=== PATIENT | male | born 1970 | race Caucasian/White ===

== ENCOUNTER 2019-12-24 00:45 | Emergency (ER) | payer OTHER, SELFPAY ==
[2019-12-24 00:52] VITALS: BP 161/96; PULSE 78; RESP 16; TEMP 36.6; O2SAT 100
--- NOTE | 2019-12-24 01:09 | ED.GENADULT ---
HPI - General Adult General Chief complaint: Urogenital-Male Stated complaint: erection for over four hours Time Seen by Provider: 12/24/19 00:59 Source: patient Mode of arrival: Ambulatory Limitations: no limitations History of Present Illness HPI narrative: Patient is a 49-year-old male. History of erectile dysfunction. Here in the emergency department greater than 4 hours after using a medication called TRI-MIX for erectile dysfunction. This is an injectable medication. This 1st time he is use this medication. He is here because the erection that he has had has not resolved. Has some discomfort however he states that it is very tolerable. He is here because erection has gone on for so long. Related Data Home Medications Medication Instructions Recorded Confirmed diltiazem HCl 240 mg PO QDAY #0 01/12/12 12/10/19 omeprazole 40 mg PO QDAY #0 07/20/16 12/10/19 pravastatin 80 mg PO QDAY #0 07/20/16 12/10/19 testosterone [AndroGel] 1.25 gm TD #0 07/20/16 12/10/19 dextroamphetamine-amphetamine 15 mg PO BID #0 07/27/17 12/10/19 [Adderall] Respironics Dreamstation CPAP #1 ea 11/14/18 12/10/19 Previous Rx's Medication Instructions Recorded docusate sodium [Colace] 100 mg PO BID #14 cap 07/31/17 zolpidem 10 mg tablet 10 mg PO BEDTIME PRN #30 tab 02/04/19 Ambien 10 mg tablet 10 mg PO BEDTIME PRN #30 tab NS 09/06/19 Allergies Allergy/AdvReac Type Severity Reaction Status Date / Time No Known Allergies Allergy Uncoded 12/10/19 09:19 Review of Systems Constitutional Constitutional: Denies fever(s) Cardiovascular Cardiovascular: Denies chest pain and Denies dyspnea Respiratory Respiratory: Denies dyspnea Genitourinary Comments: Priapism Integumentary/Breasts Skin/Breast: Denies lesions and Denies rash Patient History Medical History ADHD (attention deficit hyperactivity disorder) (Chronic) Excessive daytime sleepiness (Chronic) External hemorrhoid (Acute) Hypertension (Chronic) Obstructive sleep apnea of adult (Chronic) Primary insomnia (Chronic) Snoring (Chronic) Surgical History History of bilateral inguinal herniorrhaphies (Acute) History of laparoscopic cholecystectomy (Acute) History of repair of ACL (Acute) Family History Brother Insomnia Social History marital status: details: anusha Collins ([employer], [facility]) number of children: 3 household members: spouse lives independently: Yes housing: house occupational status: employed alcohol intake: current substance use type: does not use Exam Initial Vital Signs Initial Vital Signs: Vital Signs Temperature 97.8 F 12/24/19 00:52 Pulse Rate 78 12/24/19 00:52 Respiratory Rate 16 12/24/19 00:52 Blood Pressure 161/96 H 12/24/19 00:52 Pulse Oximetry 100 12/24/19 00:52 Const General: cooperative and healthy appearing Limitations: mental status not altered [facility] Head: normal to inspection and normocephalic Resp Effort & Inspection: normal respiratory effort External: circumcised Penis: no ecchymosis, not edematous, not erythematous and other (Erection) Meatus: meatus normal Scrotum: scrotum normal Testes: normal Skin Lesions: no lesions Rashes: no rashes Neuro General: patient alert and patient awake Cognition: normal cognition Extrem General: capillary refill normal Psych Appearance: grossly normal and well kempt Procedures Nerve Block Nerve Block 1: Time out performed: Yes Local Anesthetic: lidocaine 1% Amount of anesthesia used (mL): 4 Nerve Blocks: other (Penile) Procedure Successful: Yes Patient Tolerated Procedure: Well Complications: none Penile Procedure Time Out Performed: Yes Indication: priapism management Procedural Sedation: No Sedation/Analgesia: none Local Anesthesia Used: lidocaine 1% without epi Amount of anesthesia used (mL): 2 Priapism Management: aspiration (20 cc total) and phenylephrine injection (Total of 200mcg in 2x 100MCG aliquots) Patient Tolerated Procedure: Well Complications: none Course Orders Ordered: Discontinued Medications Sodium Chloride (Normal Saline 0.9%) 50 mls @ 1,000 mls/hr IV BOLUS ONE Stop: 12/24/19 01:49 Last Admin: 12/24/19 02:04 Dose: Not Given Documented by: LEONARD Lidocaine HCl (Xylocaine 1% (Pf)) 4 ml INJ NOW ONE Stop: 12/24/19 01:11 Last Admin: 12/24/19 01:38 Dose: 4 ml Documented by: LEONARD Lidocaine HCl (Xylocaine 1% (Pf)) 2 ml INJ NOW ONE Stop: 12/24/19 01:45 Last Admin: 12/24/19 02:03 Dose: 2 ml Documented by: LEONARD Sodium Chloride (Normal Saline 0.9%) 100 ml IV NOW ONE Stop: 12/24/19 02:05 Last Admin: 12/24/19 02:06 Dose: 100 ml Documented by: LEONARD Vital Signs Vital signs: Vital Signs - 8 hr 12/24/19 00:52 12/24/19 03:10 Temperature 97.8 F Pulse Rate 78 76 Respiratory Rate 16 20 Blood Pressure 161/96 H 152/94 H Pulse Oximetry 100 98 Medical Decision Making MDM Narrative Medical decision making narrative: Penile block provided with 4 cc of 1% lidocaine without epi. Another do cc total of lidocaine was used for local injection. A total of 200 mcg of phenylephrine used in 2x 100 mcg aliquots approximately 30 minutes apart. During the 1st procedure a total of 20 cc of blood was aspirated. The injections and aspirations were performed on the left side dorsum at the base of the penis. After the 1st injection of phenylephrine in the aspiration of blood patient had a good outcome with the penis becoming more flaccid. After waiting 30 minutes the priapism was much improved however patient stated that he did feel somewhat engorged so another 100 cc phenylephrine was injected. After this again penis became much more flaccid. He was observed for 30 minutes of for the 2nd injection. The prior visit almost completely resolved. Feel patient be safely discharged home without further interventions. He was instructed not to use the medication again until he talked these urologist. He was given strict return precautions and follow-up instructions. He expressed understanding and agreement. Discharge Plan Departure Patient Disposition: Home Clinical Impression: Priapism Discharge Date/Time: 12/24/19 03:10 Instructions: DI for Priapism Activity Restrictions/Additional Instructions: I would recommend that you do not use in the erectile dysfunction medications again into you talk with your urologist. The erection should not reoccur however if it does or if you have more pain or fevers or problems urinating please return to the emergency department. I do recommend that you contact your urologist tomorrow to discuss the events of this evening. You can continue the rest of your medications as directed Prescriptions: No Action diltiazem HCl 240 MG capsule,extended release 24hr 240 mg PO QDAY Qty: 0 RF: 0 omeprazole 40 MG capsule,delayed release(DR/EC) 40 mg PO QDAY Qty: 0 RF: 0 testosterone [AndroGel] 1.25 GM gel in packet 1.25 gm TD Qty: 0 RF: 0 pravastatin 40 MG tablet 80 mg PO QDAY Qty: 0 RF: 0 dextroamphetamine-amphetamine [Adderall] 15 MG tablet 15 mg PO BID Qty: 0 RF: 0 docusate sodium [Colace] 100 MG capsule 100 mg PO BID Qty: 14 RF: 1 zolpidem [Ambien] 10 mg tablet 10 mg PO BEDTIME PRN (Reason: insomnia) Qty: 30 RF: 2 zolpidem [Ambien] 10 mg tablet 10 mg PO BEDTIME PRN (Reason: insomnia) Qty: 30 RF: 0 (DME) Respironics Dreamstation CPAP Qty: 1 RF: 0 Referrals: Popeye Shields MD [Primary Care Provider] -
[2019-12-24] MEDS: LIDOCAINE 1% (PF) 4 ML INJ (01:38)
[2019-12-24] MEDS: LIDOCAINE 1% (PF) 2 ML INJ (02:03)
[2019-12-24] MEDS: SODIUM CHLORIDE 0.9% 100 ML IV (02:06)
--- NOTE | 2019-12-24 02:09 | PC.NURSE ---
Addendum entered by Leidy Waller R.N. 12/24/19 02:34: He was given by DR Guardado 100mcg of phenylephrine. Original Note: He was given one ml of phenylephrine ,concentration 10mg per ml,that was mixed in [address] ml [address] saline [address] Guardado.I could not scan the vial of phenylephrine.
--- NOTE | 2019-12-24 02:17 | PC.NURSE ---
He was here for an erection for approx. 4 hours after taking injection of tri-mix.After Dr rice injected his penis with phenylephrine his erection subsided.
[2019-12-24 03:10] VITALS: BP 152/94; PULSE 76; RESP 20; O2SAT 98
== END 2019-12-24 03:10 | disposition home or self-care (01) ==
PROVIDERS: Emergency Provider Emergency Medicine; Family Provider Family Medicine; PCP Family Medicine
DX: N48.33 Priapism, drug-induced (principal); T50.995A Adverse effect of other drugs, medicaments and biological substances, initial encounter
CPT/HCPCS: 54220; 64450; 99283; 99284

== ENCOUNTER 2020-01-08 04:29 | Emergency (ER) | payer OTHER, SELFPAY ==
[2020-01-08 04:37] VITALS: BP 135/90; PULSE 89; RESP 15; TEMP 37; O2SAT 96; BMI 27.7
--- NOTE | 2020-01-08 04:48 | ED_ITS ---
HPI - Male Genitourinary General Chief complaint: Urogenital-Male Stated complaint: erection lasting 8 hours Time Seen by Provider: 01/08/20 04:35 Source: patient and family History of Present Illness HPI Narrative: Patient here for priapism used trimix 8 hours ago. He was here December 23 for the same and had phenylephrine injection with aspiration. Duration: constant Location: penis Severity: severe Related Data Home Medications Medication Instructions Recorded Confirmed diltiazem HCl 240 mg PO QDAY #0 01/12/12 12/10/19 omeprazole 40 mg PO QDAY #0 07/20/16 12/10/19 pravastatin 80 mg PO QDAY #0 07/20/16 12/10/19 testosterone [AndroGel] 1.25 gm TD #0 07/20/16 12/10/19 dextroamphetamine-amphetamine 15 mg PO BID #0 07/27/17 12/10/19 [Adderall] Respironics Dreamstation CPAP #1 ea 11/14/18 12/10/19 Previous Rx's Medication Instructions Recorded docusate sodium [Colace] 100 mg PO BID #14 cap 07/31/17 zolpidem 10 mg tablet 10 mg PO BEDTIME PRN #30 tab 02/04/19 Ambien 10 mg tablet 10 mg PO BEDTIME PRN #30 tab NS 09/06/19 Allergies Allergy/AdvReac Type Severity Reaction Status Date / Time No Known Allergies Allergy Verified 01/08/20 07:05 Review of Systems Review of Systems Narrative: GENERAL: Denies chills, fatigue, malaise, fever, sweats. : Denies dysuria, frequency, incontinence, hematuria, complains priapism SKIN: Denies rash, skin lesions NEUROLOGIC: Denies numbness PSYCHIATRIC: No concerning psychosocial issues. 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 Well-nourished, well- developed patient, in no distress, not toxic HEAD: Atraumatic. Normocephalic. : No lesions no alterations no cyanosis or discoloration no genitalia. Pa tient is circumcised. Erection present. BACK: Nontender without deformity or crepitance. No flank tenderness. NEURO: AOx3. SKIN: No rash or erythema of visible areas Initial Vital Signs Initial Vital Signs: Vital Signs Temperature 98.6 F 01/08/20 04:37 Pulse Rate 89 01/08/20 04:37 Respiratory Rate 15 01/08/20 04:37 Blood Pressure 135/90 01/08/20 04:37 Pulse Oximetry 96 01/08/20 04:37 Course Course Course Narrative: Time 5:40 a.m.. I spoke with Dr. Hernandes, urology, he states he is unable to help because he is in urology oncology. Time 5:47 a.m. I spoke with patient's urology group dr miller [facility], at this time no aspiration but try to give injection of phenylephrine. Give injection dosing 500 mcg per 0.1 mL lateral surface mid penis. Time 6:27 a.m., we have been on phone with pharmacy to order proper dosing and computer system does not have the 10,000 mcg per mL, had to use [facility] pharmacy by phone to help Time 6:54 a.m. 500 micro g of phenylephrine injected into the left lateral mid penile shaft without difficulty. Clean skin with alcohol swab. Patient tolerated well. Aspirated before injection and had flashback. Time 7:[address] Harrison called back and instructed if not improved in 10 or 20 minutes and then sent patient to [facility] and he will see patient there. Time 7:08 a.m.. No improvement. I spoke with Dr. Harrison. Will be sending patient to [facility] emergency department and he will meet the patient there Time 7:14 a.m. I spoke with [facility], Dr. Thorpe, he will accept patient, he will contact Dr. Harrison on patient arrival Orders Ordered: Phenylephrine HCl (John-Synephrine) 500 mcg IM SEEINSTR JORGE A Stop: 01/08/20 23:59 Last Admin: 01/08/20 06:47 Dose: 500 mcg Documented by: LEONARD Discontinued Medications Hydromorphone HCl (Dilaudid) 1 mg IM NOW ONE Stop: 01/08/20 05:46 Last Admin: 01/08/20 06:07 Dose: 1 mg Documented by: LEONARD Ondansetron HCl (Zofran Odt) 4 mg SL NOW ONE Stop: 01/08/20 05:46 Last Admin: 01/08/20 06:07 Dose: 4 mg Documented by: LEONARD Reevaluation(s) Reevaluation #1: Patient and his have been very patient. Very understanding about multiple calls in attempts to get Urology to help. Re- evaluation of skin no cyanosis no discoloration. At this time they understand will need to go to [facility]. They do not want ambulance service. They desire to drive themselves. Time: 07:04 Reevaluation #2: I spoke with patient and . They do not want EMS transfer. They desire to drive. Pain has improved. Re-examination and priapism has improved, less pressure. Time: 07:19 Consultations Consultation #1: [facility] gurrola and he states he is not able to help. he has not done decompression for priapism in 25 years Time: 04:50 Consultation #2: i sw dr simpson, urology, with [facility], she states she will not help as we have urology here, dr gurrola whom i've already spoken with Time: 05:16 Consultation #3: s/w [facility], urology, dr enriquez, she s/w her attending and wanted to try to lookup Up to Date website for step by step procedure Time: 05:31 Vital Signs Vital signs: Vital Signs - 8 hr 01/08/20 04:37 01/08/20 06:26 Temperature 98.6 F Pulse Rate 89 76 Respiratory Rate 15 20 Blood Pressure 135/90 137/76 Pulse Oximetry 96 98 MDM - Male Genitourinary Differential Diagnosis Differential diagnosis: Likely priapism Medical Records Attestation: I reviewed the patient's medical records. MDM Narrative Medical decision making narrative: Paged Urology at 4:51 a.m. Discharge Plan Departure Patient Disposition: [facility] Clinical Impression: Priapism Activity Restrictions/Additional Instructions: Go directly to [facility]. Here Dr. Nelson is expecting you from emergency department, they will call Dr. Harrison with Urology to meet you there. Prescriptions: No Action diltiazem HCl 240 MG capsule,extended release 24hr 240 mg PO QDAY Qty: 0 RF: 0 omeprazole 40 MG capsule,delayed release(DR/EC) 40 mg PO QDAY Qty: 0 RF: 0 testosterone [AndroGel] 1.25 GM gel in packet 1.25 gm TD Qty: 0 RF: 0 pravastatin 40 MG tablet 80 mg PO QDAY Qty: 0 RF: 0 dextroamphetamine-amphetamine [Adderall] 15 MG tablet 15 mg PO BID Qty: 0 RF: 0 docusate sodium [Colace] 100 MG capsule 100 mg PO BID Qty: 14 RF: 1 zolpidem [Ambien] 10 mg tablet 10 mg PO BEDTIME PRN (Reason: insomnia) Qty: 30 RF: 2 zolpidem [Ambien] 10 mg tablet 10 mg PO BEDTIME PRN (Reason: insomnia) Qty: 30 RF: 0 (DME) Respironics Dreamstation CPAP Qty: 1 RF: 0 Referrals: Popeye Shields MD [Primary Care Provider] -
[2020-01-08] MEDS: HYDROMORPHONE 1 MG INJ IM ×2 (06:07→07:11)
[2020-01-08] MEDS: ONDANSETRON 4 MG ODT SL (06:07)
[2020-01-08 06:26] VITALS: BP 137/76; PULSE 76; RESP 20; O2SAT 98
[2020-01-08] MEDS: PHENYLEPHRINE 10,000 MCG/ML VIAL 500 MCG IM (06:47)
[2020-01-08 07:27] VITALS: BP 129/67; PULSE 62; RESP 18; O2SAT 95
== END 2020-01-08 07:30 | disposition short-term general hospital (02) ==
PROVIDERS: Emergency Provider Emergency Medicine; Family Provider Family Medicine; PCP Family Medicine
DX: N48.30 Priapism, unspecified (principal)
CPT/HCPCS: 96372; 99283; J1170

== ENCOUNTER → 2020-10-06 16:50 | Outpatient (CLI) | payer OTHER, SELFPAY ==
[2020-10-06] MEDS: COVID-19 VACC #1, MRNA(MOD) 100 MCG/0.5 ML VIAL IM (17:01)
== END ==
PROVIDERS: PCP Family Medicine; Referring Provider Internal Medicine; Visit Provider Internal Medicine
DX: Z23 Encounter for immunization (principal)
CPT/HCPCS: 0011A; 91301

== ENCOUNTER → 2020-10-11 08:15 | Outpatient (CLI) | payer OTHER, SELFPAY ==
[2020-10-11 08:49] LABS: Add Manual Diff / Slide Review NO; Basophils Absolute Auto 100 /uL (0-100); Basophils Percent Auto 2.3 % (0-2); Eosinophils Absolute Auto 200 /uL (0-450); Hematocrit 45.6 % (41-53); Hemoglobin 15.3 g/dL (13.5-17.5); Lymphocytes Absolute Auto 1600 /uL (1100-4500); Lymphocytes Percent Auto 34.8 % (25-40); Mean Corpuscular HGB Conc 33.6 % (30-36); Mean Corpuscular Hemoglobin 29.7 PG (26-34); Mean Corpuscular Volume 88.3 fL (80-100); Monocytes Absolute Auto 500 /uL (0-900); Monocytes Percent Auto 11.9 % (3-14); Neutrophils Absolute Auto 2100 /uL (1500-7000); Platelet Count 324 X10^3/uL (150-400); Red Blood Cell Count 5.16 X10^6/uL (4.5-5.9); Red Cell Distribution Width 13.6 % (11.6-14.8); White Blood Cell Count 4.6 X10^3/uL (4.5-11.0)
[2020-10-11 09:10] LABS: Alanine Aminotransferase 29 IU/L (<50); Albumin 4.5 g/dL (3.5-5.0); Albumin Globulin Ratio 1.5 (1.0-2.8); Alkaline Phosphatase 64 U/L (38-126); Aspartate Aminotransferase 27 IU/L (17-59); BUN Creatinine Ratio 20.4 (6-22); Bilirubin Total 0.5 mg/dL (0.2-1.3); Blood Urea Nitrogen 23 mg/dL (9-20); Calcium 9.6 mg/dL (8.4-10.2); Carbon Dioxide 31 mmol/L (22-32); Chloride 102 mmol/L (98-107); Cholesterol 209 mg/dL (140-199); Estimated Glomerular Filt Rate > 60.0 mL/min (>60); Globulin 3.1 g/dL (1.7-4.1); Glucose 112 mg/dL (70-100); HDL Cholesterol 53 mg/dL (40-60); HEMOLYSIS < 15 (0-50); LDL Cholesterol Calculated 139 mg/dL (<100); Potassium 4.1 mmol/L (3.4-5.1); Sodium 140 mmol/L (137-145); Total Protein 7.6 g/dL (6.3-8.2); Triglycerides 85 mg/dL (35-150)
[2020-10-11 09:33] LABS: Thyroid Stimulating Hormone 2.94 uIU/mL (0.47-4.68)
[2020-10-11 09:35] LABS: Prostate Specific Antigen 1.76 ng/mL (0.10-4.00)
[2020-10-11 09:38] LABS: Testosterone 776 ng/dL (71.8-623)
== END ==
PROVIDERS: PCP Family Medicine; Referring Provider Family Medicine; Visit Provider Family Medicine
DX: Z13.0 Encounter for screening for diseases of the blood and blood-forming organs and certain disorders involving the immune mechanism (principal); I10 Essential (primary) hypertension; Z12.5 Encounter for screening for malignant neoplasm of prostate; E29.1 Testicular hypofunction; Z13.29 Encounter for screening for other suspected endocrine disorder
CPT/HCPCS: 36415; 80053; 80061; 84153; 84403; 84443; 85025

== ENCOUNTER → 2020-11-03 10:19 | Outpatient (CLI) | payer OTHER, SELFPAY ==
[2020-11-03] MEDS: COVID-19 VACC #2, MRNA(MOD) 100 MCG/0.5 ML VIAL IM (10:28)
== END ==
PROVIDERS: PCP Family Medicine; Visit Provider Internal Medicine
DX: Z23 Encounter for immunization (principal)
CPT/HCPCS: 0012A; 91301

== ENCOUNTER 2022-07-05 12:30 | Outpatient (RCR) | payer OTHER, SELFPAY | END 2022-07-05 14:30 | LOC: CAR 12:30 | PROVIDERS: PCP Family Medicine; Referring Provider Thoracic Surgery (Cardiothoracic Vascular Surgery); Visit Provider Thoracic Surgery (Cardiothoracic Vascular Surgery) | DX: Z98.890 Other specified postprocedural states (principal); I71.010 Dissection of ascending aorta; I71.20 Thoracic aortic aneurysm, without rupture, unspecified | CPT/HCPCS: 93798 ==

== ENCOUNTER → 2022-09-14 15:52 | Outpatient (ROUT) | payer OTHER, SELFPAY ==
[2022-09-14 16:33] LABS: Influenza A - CEPHEID Flu A NEGATIVE (NEGATIVE); Influenza B - CEPHEID Flu B NEGATIVE (NEGATIVE); Respiratory Syncytial Virus Negative (Negative)
[2022-09-14 17:02] LABS: COVID-19 CEPHEID 4-PLEX PCR Negative (Negative)
== END ==
PROVIDERS: PCP Family Medicine; Visit Provider Family Medicine
DX: R05.9 Cough, unspecified (principal); R53.83 Other fatigue
CPT/HCPCS: 0241U

== ENCOUNTER → 2023-04-11 10:37 | Outpatient (CLI) | payer OTHER, SELFPAY ==
[2023-04-18 10:33] LABS: Percent Free Testosterone 2.93 % (1.50-4.20); Testosterone Free 7.17 ng/dL (5.00-21.00); Testosterone Total 244.8 ng/dL (264.0-916.0)
== END ==
PROVIDERS: PCP Family Medicine; Referring Provider Family Medicine; Visit Provider Family Medicine
DX: E29.1 Testicular hypofunction (principal)
CPT/HCPCS: 36415; 84402; 84403

== ENCOUNTER 2023-08-29 17:37 | Observation (INO) | payer OTHER, SELFPAY ==
[2023-08-29] VITALS (14 sets, daily range): BP systolic 138–157; BP diastolic 68–88; PULSE 70–83; RESP 11–23; TEMP 36.8–37.2; O2SAT 94–98; BMI 32.3
--- NOTE | 2023-08-29 17:58 | DI.CT.S_ITS ---
PROCEDURE: CT HEAD/BRAIN WO CON INDICATIONS: stroke symptoms TECHNIQUE: Noncontrast 4.5 mm thick angled axial sections acquired from the foramen magnum to the vertex, with coronal and sagittal reformats. For radiation dose reduction, the following was used: automated exposure control, adjustment of mA and/or kV according to patient size. COMPARISON: None. FINDINGS: Image quality: Diagnostic. CSF spaces: Basal cisterns are patent. No extra-axial fluid collections. Ventricles are normal in size and shape. Brain: No midline shift. No intracranial masses or hemorrhage. Padilla-white matter interface is normal. Skull and face: Calvarium and visualized facial bones are intact, without suspicious lesions. Sinuses: Air-fluid level in the left maxillary sinus. IMPRESSION: No acute intracranial pathology. Left maxillary sinusitis. Dictated by: Sajan Mishra M.D. on 08/29/2023 at 18:47 Approved by: Sajan Mishra M.D. on 08/29/2023 at 18:49
--- NOTE | 2023-08-29 17:58 | DI.RAD.S_ITS ---
PROCEDURE: XR CHEST 1V INDICATIONS: Possible stroke TECHNIQUE: One view of the chest was acquired. COMPARISON: None. FINDINGS: Surgical changes and devices: Prior sternotomy. Lungs and pleura: Lungs are clear. No pleural effusions or pneumothorax. Mediastinum: Mediastinal contours appear normal. Heart size is normal. Bones and chest wall: No suspicious bony lesions. Overlying soft tissues appear unremarkable. IMPRESSION: No acute cardiopulmonary abnormality is seen. Dictated by: Sajan Mishra M.D. on 08/29/2023 at 18:46 Approved by: Sajan Mishra M.D. on 08/29/2023 at 18:46
--- NOTE | 2023-08-29 18:22 | PC.NURSE ---
IV placed by EMT student Veena
[2023-08-29 18:36] LABS: Add Manual Diff / Slide Review NO; Basophils Absolute Auto 100 /uL (0-100); Basophils Percent Auto 1.2 % (0-2); Eosinophils Absolute Auto 100 /uL (0-450); Eosinophils Percent Auto 1.4 % (2-4); Hematocrit 44.3 % (41-53); Hemoglobin 14.9 g/dL (13.5-17.5); Lymphocytes Absolute Auto 1600 /uL (1100-4500); Mean Corpuscular HGB Conc 33.6 % (30-36); Mean Corpuscular Hemoglobin 29.6 PG (26-34); Mean Corpuscular Volume 88.1 fL (80-100); Monocytes Absolute Auto 700 /uL (0-900); Monocytes Percent Auto 9.3 % (3-14); Neutrophils Absolute Auto 4600 /uL (1500-7000); Neutrophils Percent Auto 65.1 % (50-75); Platelet Count 331 X10^3/uL (150-400); Red Blood Cell Count 5.03 X10^6/uL (4.5-5.9); Red Cell Distribution Width 13.4 % (11.6-14.8); White Blood Cell Count 7.1 X10^3/uL (4.5-11.0)
[2023-08-29 18:44] LABS: INR 0.9 (0.9-1.3); Prothrombin Time 10.8 SECONDS (9.4-12.5)
[2023-08-29 18:47] LABS: PTT Partial Thromboplastin Tim 38 SECONDS (25.1-36.5)
[2023-08-29 18:50] LABS: Alanine Aminotransferase 54 IU/L (<50); Albumin 4.2 g/dL (3.5-5.0); Albumin Globulin Ratio 1.3 (1.0-2.8); Alkaline Phosphatase 69 U/L (38-126); Aspartate Aminotransferase 38 IU/L (17-59); BUN Creatinine Ratio 14.8 (6-22); Bilirubin Total 0.6 mg/dL (0.2-1.3); Blood Urea Nitrogen 20 mg/dL (9-20); Calcium 9.2 mg/dL (8.4-10.2); Carbon Dioxide 30 mmol/L (22-32); Chloride 106 mmol/L (98-107); Creatine Kinase 371 U/L (55-170); Estimated Glomerular Filt Rate > 60 mL/min (>60); Globulin 3.2 g/dL (1.7-4.1); Glucose 109 mg/dL (70-100); HEMOLYSIS < 15 (0-50); Magnesium 1.8 mg/dL (1.6-2.3); Potassium 3.9 mmol/L (3.4-5.1); Sodium 138 mmol/L (137-145); Total Protein 7.4 g/dL (6.3-8.2)
[2023-08-29 19:01] LABS: Troponin I 0.013 ng/mL (0.01-0.034)
--- NOTE | 2023-08-29 19:28 | ED_ITS ---
HPI - Neuro Symptoms/Deficit General Chief Complaint: Neuro Symptoms/Deficit Stated Complaint: thinks possible stroke Time Seen by Provider: 08/29/23 18:03 Source: patient Mode of arrival: Ambulatory History of Present Illness HPI Narrative: Patient is a 53-year-old male. Has a history of a aortic aneurysm status post repair. Not on blood thinners. Earlier today had a less than 10 minute episode where he states he was walking outside in order to go talk to somebody when he had the inability to speak. He states he realized that he wanted to speak and knew what he wanted to say but was unable to form the words. He was also having tingling in his left arm during that time. All of his symptoms have since resolved. During that episode and currently is not having headache vision changes shortness of breath chest pain abdominal pain nausea vomiting. He did not notice any balance issues at the time. He has never had symptoms like this in the past. He was not having any palpitations. Did not have palpitations at the time of the event. 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 On Anticoagulants: No Related Data Home Medications Medication Instructions Recorded Confirmed testosterone 1.62 % (20.25 mg/1.25 1.25 gm TD ##0 07/20/16 05/31/22 gram) transdermal gel packet (AndroGel) dextroamphetamine-amphetamine 15 15 mg PO BID ##0 07/27/17 08/30/23 mg tablet (Adderall) Respironics Dreamstation CPAP #1 ea 11/14/18 08/29/23 amlodipine 10 mg tablet 10 mg PO DAILY 05/31/22 08/29/23 aspirin 81 mg tablet,delayed 81 mg PO DAILY 05/31/22 08/29/23 release (Adult Aspirin Regimen) atorvastatin 40 mg tablet 40 mg PO DAILY 05/31/22 08/29/23 carvedilol 12.5 mg tablet 6.25 mg PO DAILY 05/31/22 08/30/23 losartan 25 mg tablet 25 mg PO BID 05/31/22 08/30/23 Previous Rx's Medication Instructions Recorded eszopiclone 2 mg tablet 2 mg PO BEDTIME PRN Primary 05/31/22 insomnia #30 tabs Allergies Allergy/AdvReac Type Severity Reaction Status Date / Time No Known Allergies Allergy Verified 08/29/23 17:54 Review of Systems Review of Systems ROS Unobtainable: All systems reviewed & are unremarkable except as noted in HPI and below Constitutional Constitutional: Reports system reviewed and no additional complaints, except as documented Cardiovascular Cardiovascular: Reports system reviewed and no additional complaints, except as documented Respiratory Respiratory: Reports system reviewed and no additional complaints, except as documented Gastrointestinal Gastrointestinal: Reports system reviewed and no additional complaints, except as documented Integumentary/Breasts Skin/Breast: Reports system reviewed and no additional complaints, except as documented Neurologic Neurologic: Reports system reviewed and no additional complaints, except as documented Hematologic/Lymphatic On Anticoagulants: No Patient History Medical History History 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 (2021) 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 External hemorrhoid ADHD (attention deficit hyperactivity disorder) Hypertension Excessive daytime sleepiness Obstructive sleep apnea of adult Snoring Primary insomnia Surgical History History of bilateral inguinal herniorrhaphies History of repair of ACL History of laparoscopic cholecystectomy Family History Brother Insomnia Social History marital status: details: 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, [employer]) number of children: 3 household members: spouse lives independently: Yes housing: house occupational status: employed Smoking Status: Former smoker alcohol intake: former substance use type: does not use Smoking Status: Former smoker alcohol intake frequency: a few times a week Substance Use Type: does not use Exam Initial Vital Signs Initial Vital Signs: Vital Signs Temperature 99 F 08/29/23 17:47 Pulse Rate 81 08/29/23 17:47 Respiratory Rate 18 08/29/23 17:47 Blood Pressure 156/85 H 08/29/23 17:47 Pulse Oximetry 98 08/29/23 17:47 Oxygen Delivery Method Room Air 08/29/23 17:47 Const General: cooperative, comfortable, well groomed and No ill appearing HENMT Head: normal to inspection and normocephalic Resp Effort & Inspection: normal respiratory effort Auscultation: clear to auscultation bilaterally Cardio Rate: regular rate Rhythm: regular rhythm GI Inspection: normal to inspection and non-distended Palpation: soft and No tender Skin General: no rashes or lesions noted Neuro General: patient alert, patient awake, patient oriented x3 and moves all extremities Cranial Nerves: CN's II-XI intact bilaterally Cognition: normal cognition Speech: speech normal Gait: normal gait Motor: muscle tone normal throughout Sensory Exam: no sensory deficits noted Extrem General: normal to inspection and capillary refill normal Scores ABCD2 Age >= 60 years: no Initial BP. Either SBP >= 140 or DBP >= 90.: no Clinical features of the TIA: speech disturbance without weakness Duration of symptoms: < 10 minutes History of diabetes: no ABCD2 Score: 1 GCS Hola coma scale eye opening: Spontaneous Hola coma scale verbal response: Orientated Theodore coma scale motor response: Obey commands Theodore coma scale total score: 15 Course Orders Ordered: ED Orders 08/29/23 20:09 CT angio head and neck Stat 08/29/23 21:52 Consult to Physician Stat MR stroke Stat Ondansetron HCl (Ondansetron 4 Mg/2 Ml Inj) 4 mg IV NOW PRN PRN Reason: Nausea And Vomiting Ondansetron HCl (Ondansetron 4 Mg Odt) 4 mg SL NOW PRN PRN Reason: Nausea And Vomiting Vital Signs Vital signs: Vital Signs - 8 hr 08/29/23 21:00 08/29/23 21:00 08/29/23 21:30 Pulse Rate 74 Respiratory Rate 23 Blood Pressure 138/75 144/75 H Pulse Oximetry 94 08/29/23 21:30 Pulse Rate 73 Respiratory Rate 14 Blood Pressure Pulse Oximetry 96 MDM - Neuro Symptoms/Deficit Lab Data Attestation: I reviewed the patient's lab results. 08/29/23 18:12 08/29/23 18:12 Labs: Lab Results 08/29/23 08/29/23 Range/Units 18:12 19:28 WBC 7.1 (4.5-11.0) X10^3/uL RBC 5.03 (4.5-5.9) X10^6/uL Hgb 14.9 (13.5-17.5) g/dL Hct 44.3 (41-53) % MCV 88.1 (80-100) fL MCH 29.6 (26-34) PG MCHC 33.6 (30-36) % RDW 13.4 (11.6-14.8) % Plt Count 331 (150-400) X10^3/uL Neut % (Auto) 65.1 (50-75) % Lymph % (Auto) 23.0 L (25-40) % [place] % (Auto) 9.3 (3-14) % Eos % (Auto) 1.4 L (2-4) % Baso % (Auto) 1.2 (0-2) % Neut # (Auto) 4600 (2647-1489) /uL Lymph # (Auto) 1600 (2012-1751) /uL [place] # (Auto) 700 (0-900) /uL Eos # (Auto) 100 (0-450) /uL Baso # (Auto) 100 (0-100) /uL PT 10.8 (9.4-12.5) SECONDS INR 0.9 (0.9-1.3) APTT 38 H (25.1-36.5) SECONDS Sodium 138 (137-145) mmol/L Potassium 3.9 (3.4-5.1) mmol/L Chloride 106 (98-107) mmol/L Carbon Dioxide 30 (22-32) mmol/L BUN 20 (9-20) mg/dL Creatinine 1.35 H (0.66-1.25) mg/dL Estimated GFR > 60 (>60) mL/min BUN/Creatinine Ratio 14.8 (6-22) Glucose 109 H (70-100) mg/dL Calcium 9.2 (8.4-10.2) mg/dL Magnesium 1.8 (1.6-2.3) mg/dL Total Bilirubin 0.6 (0.2-1.3) mg/dL AST 38 (17-59) IU/L ALT 54 H (<50) IU/L Alkaline Phosphatase 69 (38-126) U/L Total Creatine Kinase 371 H (55-170) U/L Troponin I 0.013 (0.01-0.034) ng/mL Total Protein 7.4 (6.3-8.2) g/dL Albumin 4.2 (3.5-5.0) g/dL Globulin 3.2 (1.7-4.1) g/dL Albumin/Globulin Ratio 1.3 (1.0-2.8) U Opiates 300ng/mL cut Negative (Negative) Ur Oxycodone Screen Negative (Negative) Urine Methadone Screen Negative (Negative) Ur Barbiturates Screen Negative (Negative) U Tricyclic Antidepress Negative (Negative) Ur Phencyclidine Scrn Negative (Negative) Ur Amphetamines Screen Positive H (Negative) U Methamphetamines Scrn Negative (Negative) Ur MDMA Scrn (Ecstasy) Negative (Negative) U Benzodiazepines Scrn Negative (Negative) Urine Cocaine Screen Negative (Negative) U Marijuana (THC) Screen Negative (Negative) Urine pH TNP Urine Specific [place] TNP Ur Creatinine TNP Urine Dip Bedside Urine Glucose Negative Bedside Urine Bilirubin - Negative Bedside Urine Ketone - Negative Urine Specific [place] 1.030 Bedside Urine Occult Blood - Negative Bedside Urine pH 5.5 Bedside Urine Protein - Negative Bedside Urine Urobilinogen - Negative Bedside Urine Nitrite - Negative Bedside Urine Leukocytes - Negative Esterase Imaging Data Chest x-ray: Radiologist's Impression: PROCEDURE: XR CHEST 1V INDICATIONS: Possible stroke TECHNIQUE: One view of the chest was acquired. COMPARISON: None. FINDINGS: Surgical changes and devices: Prior sternotomy. Lungs and pleura: Lungs are clear. No pleural effusions or pneumothorax. Mediastinum: Mediastinal contours appear normal. Heart size is normal. Bones and chest wall: No suspicious bony lesions. Overlying soft tissues appear unremarkable. IMPRESSION: No acute cardiopulmonary abnormality is seen. CT scan - head: Radiologist's Impression: PROCEDURE: CT HEAD/BRAIN WO CON INDICATIONS: stroke symptoms TECHNIQUE: Noncontrast 4.5 mm thick angled axial sections acquired from the foramen magnum to the vertex, with coronal and sagittal reformats. For radiation dose reduction, the following was used: automated exposure control, adjustment of mA and/or kV according to patient size. COMPARISON: None. FINDINGS: Image quality: Diagnostic. CSF spaces: Basal cisterns are patent. No extra-axial fluid collections. Ventricles are normal in size and shape. Brain: No midline shift. No intracranial masses or hemorrhage. Padilla-white matter interface is normal. Skull and face: Calvarium and visualized facial bones are intact, without suspicious lesions. Sinuses: Air-fluid level in the left maxillary sinus. IMPRESSION: No acute intracranial pathology. Left maxillary sinusitis. CTA - brain/neck: Radiologist's Impression: PROCEDURE: CT ANGIO HEAD AND NECK INDICATIONS: tia hx of tad TECHNIQUE: After the administration of intravenous contrast, 1 mm thick sections acquired from the aortic arch through the [place] of [place]. 3-dimensional bohitqh-hiuavsfdt-oflxyzbteg (MIP) and/or volume rendering reformats were acquired of the central intracranial vasculature and neck separately. For radiation dose reduction, the following was used: automated exposure control, adjustment of mA and/or kV according to patient size. COMPARISON: None. FINDINGS: Image quality: Diagnostic. BRAIN: Later to separately dictated CT of the head. HEAD CT ANGIOGRAPHY: Anterior circulation: Intracranial internal carotid arteries are normal in size and flow with atherosclerotic vascular calcifications. The flow within the paired anterior cerebral arteries is normal and symmetric. The flow within the middle cerebral arteries is normal and symmetric. The anterior communicating artery is seen. No aneurysms are seen. Posterior circulation: Visualized portions of the vertebral arteries demonstrate normal caliber, and join to form a normal appearing basilar artery. Flow within the posterior cerebral arteries is normal and symmetric. No aneurysms are seen. NECK CT ANGIOGRAPHY: Carotid system: The great vessels demonstrate a conventional anatomy as they arise from the aortic arch. The origins of the common carotid arteries appear patent. The common carotid arteries demonstrate normal caliber and courses. The bifurcation regions are both widely patent. The internal carotid arteries demonstrate normal calibers and courses. Posterior circulation: The origins of the vertebral arteries both appear widely patent. The more superior extracranial portions of both vertebral arteries also demonstrate normal courses and calibers. They join to form a normal appearing basilar artery. Soft tissues: Visualized neck soft tissues demonstrate no suspicious abnormalities. Bones: No suspicious bony lesions. Visualized cervical spine appears normally aligned. Near complete opacification of left maxillary sinus. Degenerative changes of the spine. IMPRESSION: No significant intracranial arterial abnormality is seen. No significant abnormality is seen within the arteries of the neck. Any quantitative measurements of stenosis were performed using NASCET criteria. MDM Narrative Medical decision making narrative: Currently is asymptomatic. Sinus rhythm on the EKG. Has a history of a aortic aneurysm/dissection status post repair. No history of AFib. Has had some palpitations and lightheadedness associated with this recently but not today. Had symptoms today that were concerning for TIA. Head CT and CTA of the head and neck show no acute pathology. Plan will be to admit to the hospital for further evaluation. Discussed the case with Dr. Soriano on-call for the patient's primary doctor who will admit. Discussed the need for admission with the patient. He expressed understanding and agreement. Discharge Plan Departure Patient Disposition: Admitted as Observation Clinical Impression: Brain TIA Admit Date/Time: 08/29/23 21:54 Admit Provider: Rocael Soriano
--- NOTE | 2023-08-29 20:09 | DI.CT.S_ITS ---
PROCEDURE: CT ANGIO HEAD AND NECK INDICATIONS: tia hx of tad TECHNIQUE: After the administration of intravenous contrast, 1 mm thick sections acquired from the aortic arch through the [place] of [place]. 3-dimensional yogvnck-aotcxlseq-xthkwwcnuc (MIP) and/or volume rendering reformats were acquired of the central intracranial vasculature and neck separately. For radiation dose reduction, the following was used: automated exposure control, adjustment of mA and/or kV according to patient size. COMPARISON: None. FINDINGS: Image quality: Diagnostic. BRAIN: Later to separately dictated CT of the head. HEAD CT ANGIOGRAPHY: Anterior circulation: Intracranial internal carotid arteries are normal in size and flow with atherosclerotic vascular calcifications. The flow within the paired anterior cerebral arteries is normal and symmetric. The flow within the middle cerebral arteries is normal and symmetric. The anterior communicating artery is seen. No aneurysms are seen. Posterior circulation: Visualized portions of the vertebral arteries demonstrate normal caliber, and join to form a normal appearing basilar artery. Flow within the posterior cerebral arteries is normal and symmetric. No aneurysms are seen. NECK CT ANGIOGRAPHY: Carotid system: The great vessels demonstrate a conventional anatomy as they arise from the aortic arch. The origins of the common carotid arteries appear patent. The common carotid arteries demonstrate normal caliber and courses. The bifurcation regions are both widely patent. The internal carotid arteries demonstrate normal calibers and courses. Posterior circulation: The origins of the vertebral arteries both appear widely patent. The more superior extracranial portions of both vertebral arteries also demonstrate normal courses and calibers. They join to form a normal appearing basilar artery. Soft tissues: Visualized neck soft tissues demonstrate no suspicious abnormalities. Bones: No suspicious bony lesions. Visualized cervical spine appears normally aligned. Near complete opacification of left maxillary sinus. Degenerative changes of the spine. IMPRESSION: No significant intracranial arterial abnormality is seen. No significant abnormality is seen within the arteries of the neck. Any quantitative measurements of stenosis were performed using NASCET criteria. Dictated by: Shadi Ingram M.D. on 08/29/2023 at 21:19 Approved by: Shadi Ingram M.D. on 08/29/2023 at 21:24
[2023-08-29 21:25] LABS: UR Morphine/Opiate cutoff 300 Negative (Negative); Urine Amphetamines Positive (Negative); Urine Barbiturates Negative (Negative); Urine Benzodiazepines Negative (Negative); Urine Cocaine Negative (Negative); Urine MDMA Negative (Negative); Urine Methadone Negative (Negative); Urine Methamphetamines Negative (Negative); Urine Oxycodone Negative (Negative); Urine Phencyclidine Negative (Negative); Urine Tetrahydrocannabinol Negative (Negative); Urine Tricyclic Antidepressant Negative (Negative)
--- NOTE | 2023-08-29 21:52 | DI.MRI.S_ITS ---
PROCEDURE: MR HEAD/BRAIN WO CON INDICATIONS: TIA TECHNIQUE: Noncontrast axial T1 spin echo, axial T2 fast spin echo, sagittal and axial FLAIR, coronal T2 fast spin echo, axial gradient echo, axial diffusion and ADC through the brain. COMPARISON: [facility], CT, CT HEAD/BRAIN WO CON, 08/29/2023, 18:25. FINDINGS: Image quality: Excellent. CSF Spaces: Basal cisterns are patent. No extra-axial fluid collections. Ventricles are normal in size and shape. Brain: No intracranial masses or hemorrhage. Padilla/white matter interface is normal. Brainstem appears normal. Diffusion-weighted images demonstrate no acute infarct. No chronic ischemic insults. Normal intravascular flow voids are present. Skull and face: Calvarium has normal marrow signal. Orbits appear normal. Sinuses: Marked thickening of the mucosa of the left maxillary sinus with a moderate air-fluid level present. Mild patchy anterior left ethmoid opacification and mucosal thickening. IMPRESSION: 1 period normal appearance of brain. No acute intracranial process. 2. Acute on chronic sinusitis. Dictated by: Chris Murray M.D. on 08/30/2023 at 9:03 Approved by: Chris Murray M.D. on 08/30/2023 at 9:04
[2023-08-30 04:46] VITALS: BP 129/72; PULSE 66; RESP 16; TEMP 36.9; O2SAT 96
--- NOTE | 2023-08-30 05:58 | PC.ADMIT ---
[email or web address] [facility] Admission Note: Patient admitted to AC unit from ED at 23:11, transferred via wheelchair. Alert and oriented x 4, cooperative. Ambulates independently in room. Denies pain or discomfort. Oriented to room and call light, bed in low and locked position. Call light is within reach. Requested CPAP, as he wears CPAP at home. Received order from Dr. Soriano, RT notified. The patient,Sudeep Crawford,53 y/o, was given written information regarding hospital policies, unit procedures and contact persons. Patient's smoking status: Former smoker. Vital Signs - 8 hr 08/29/23 22:00 08/29/23 22:00 08/29/23 22:30 Temperature Pulse Rate 73 70 Respiratory Rate 14 13 Blood Pressure 147/74 H Pulse Oximetry 96 96 Oxygen Flow Rate 08/29/23 22:30 08/29/23 23:11 08/30/23 04:46 Temperature 98.2 F 98.4 F Pulse Rate 74 66 Respiratory Rate 16 16 Blood Pressure 155/88 H 157/83 H 129/72 Pulse Oximetry 97 96 Oxygen Flow Rate 0 0
[2023-08-30 08:00] VITALS: BP 148/80; PULSE 67; RESP 16; TEMP 36.3; O2SAT 98
--- NOTE | 2023-08-30 09:15 | P.HP_ITS ---
History of Present Illness History of Present Illness Date Patient Seen: 08/30/23 Time Patient Seen: 08:30 Chief complaint: thinks possible stroke Narrative: CC: aphasia Pt reports that last evening he was having a regular night at home, he was trying some self administered L facial sinus massage trying to clear it open as he has a chronic problem with his sinuses- he was interrupted by his family member arriving in a truck which he ran out and hopped in but then found that he wasn't able to construct clear words without slurring dramatically. States he felt like he was thinking clearly but just couldn't get the words out. Also noted concurrently a patch of skin on his L forearm went numb. They contacted a family member who is a nurse who advised them to present to ED which they did. The slurred words persisted for about 15 minutes before dissipating - the numb arm resolved after about an hour. He reports this morning he feels quite back to baseline. CT and CTA head were done in ED with findings only remarkable for a L maxillary sinusitis. 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 of 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: 3 household members: spouse lives independently: Yes housing: house occupational status: employed Smoking Status: Former smoker alcohol intake: former substance use type: does not use Meds Home Medications and Allergies Home Medications Medication Instructions Recorded Confirmed Type testosterone 1.62 % (20.25 mg/1.25 1.25 gm TD ##0 07/20/16 05/31/22 History gram) transdermal gel packet (AndroGel) dextroamphetamine-amphetamine 15 15 mg PO BID ##0 07/27/17 08/30/23 History mg tablet (Adderall) Respironics Dreamstation CPAP #1 ea 11/14/18 08/29/23 History amlodipine 10 mg tablet 10 mg PO DAILY 05/31/22 08/29/23 History aspirin 81 mg tablet,delayed 81 mg PO DAILY 05/31/22 08/29/23 History release (Adult Aspirin Regimen) atorvastatin 40 mg tablet 40 mg PO DAILY 05/31/22 08/29/23 History carvedilol 12.5 mg tablet 6.25 mg PO DAILY 05/31/22 08/30/23 History eszopiclone 2 mg tablet 2 mg PO BEDTIME PRN Primary 05/31/22 08/30/23 Rx insomnia #30 tabs losartan 25 mg tablet 25 mg PO BID 05/31/22 08/30/23 History Allergies Allergy/AdvReac Type Severity Reaction Status Date / Time No Known Allergies Allergy Verified 08/29/23 17:54 Review of Systems Review of Systems Narrative: all systems reviewed and negative except as otherwise documented in HPI. Exam Vital Signs (past 8 hours): - 08/30/23 04:46 08/30/23 07:00 Temperature 98.4 F Pulse Rate 66 Respiratory Rate 16 Blood Pressure 129/72 Pulse Oximetry 96 Oxygen Delivery Method Room Air Oxygen Flow Rate 0 Oxygen Delivery Method Room Air Oxygen Flow Rate 0 Narrative Exam Narrative: cheerful alert standing Const General: cooperative, healthy appearing, comfortable and well developed Nutritional Appearance: average body habitus and well nourished [facility] Head: normal to inspection Face and sinus: other (L maxillary sinus ttp) Eyes Other: EOMI, PERRLA, visual ornelas frossly intact to confrontation Resp Other: clear to auscultation bilaterally Cardio Other: regular rate and rhythm, S1/S2 GI Other: soft nontender nondistended acitve bowel sounds Neuro Cranial Nerves: CN's II-XI intact bilaterally, PERRL, EOM intact bilaterally, tongue midline, hearing normal and able to rotate head bilaterally Extrem Other: intact sensation in all limbs, strength grossly 5/5 Psych Mental Status: mental status grossly normal Speech and Movement: speech and movement normal and speech not slurred Objective Labs 08/29/23 18:12 08/29/23 18:12 Labs: Laboratory Results - last 24 hr 08/29/23 08/29/23 18:12 19:28 WBC 7.1 RBC 5.03 Hgb 14.9 Hct 44.3 MCV 88.1 MCH 29.6 MCHC 33.6 RDW 13.4 Plt Count 331 Neut % (Auto) 65.1 Lymph % (Auto) 23.0 L [place] % (Auto) 9.3 Eos % (Auto) 1.4 L Baso % (Auto) 1.2 Neut # (Auto) 4600 Lymph # (Auto) 1600 [place] # (Auto) 700 Eos # (Auto) 100 Baso # (Auto) 100 PT 10.8 INR 0.9 APTT 38 H Sodium 138 Potassium 3.9 Chloride 106 Carbon Dioxide 30 BUN 20 Creatinine 1.35 H Estimated GFR > 60 BUN/Creatinine Ratio 14.8 Glucose 109 H Calcium 9.2 Magnesium 1.8 Total Bilirubin 0.6 AST 38 ALT 54 H Alkaline Phosphatase 69 Total Creatine Kinase 371 H Troponin I 0.013 Total Protein 7.4 Albumin 4.2 Globulin 3.2 Albumin/Globulin Ratio 1.3 U Opiates 300ng/mL cut Negative Ur Oxycodone Screen Negative Urine Methadone Screen Negative Ur Barbiturates Screen Negative U Tricyclic Antidepress Negative Ur Phencyclidine Scrn Negative Ur Amphetamines Screen Positive H U Methamphetamines Scrn Negative Ur MDMA Scrn (Ecstasy) Negative U Benzodiazepines Scrn Negative Urine Cocaine Screen Negative U Marijuana (THC) Screen Negative Urine pH TNP Urine Specific [place] TNP Ur Creatinine TNP Assessment & Plan Assessment & Plan narrative: #transient aphasia, possible stroke Completing imaging workup with MRI today, results will inform management #sinusitis noted on CT - may be related somehow - monitor #hypertension continue home meds hold amlodipine for now dispo: admit obsv to complete imaging workup PCP: Alyson diet: general code: full MDM: Daughter Omari Horton VTE Deep Vein Thrombosis/Pulmonary Embolism Present on Admission: No
--- NOTE | 2023-08-30 10:47 | PM.DS.1 ---
History of Present Illness History of Present Illness Date Patient Seen: 08/30/23 Time Patient Seen: 10:47 Chief complaint: thinks possible stroke Narrative: CC: aphasia Pt continues to feel fine today with normal speech and movement. Imaging completed with generally unconcerning read. Will plan to dc home with family supervision. D/c plan discussed with patient and daughter. Discharge Providers Provider Date of admission: 08/29/23 21:54 Discharge Date: 08/30/23 Primary care physician: Popeye Shields MD Consults: 08/29/23 21:52 Consult to Physician Stat Comment: Consulting Provider: Popeye Shields Reason for consultation: admission Has provider been notified: No Discharge provider: Arie Coleman MD Summary Hospital Course Discharge Diagnosis: #transient aphasia, possible stroke #acute on chronic sinusitis #hypertension, primary Hospital Course: Pt reports that last evening he was having a regular night at home, he was trying some self administered L facial sinus massage trying to clear it open as he has a chronic problem with his sinuses- he was interrupted by his family member arriving in a truck which he ran out and hopped in but then found that he wasn't able to construct clear words without slurring dramatically. States he felt like he was thinking clearly but just couldn't get the words out. Also noted concurrently a patch of skin on his L forearm went numb. They contacted a family member who is a nurse who advised them to present to ED which they did. The slurred words persisted for about 15 minutes before dissipating - the numb arm resolved after about an hour. He reports this morning he feels quite back to baseline. CT and CTA head were done in ED with findings only remarkable for a L maxillary sinusitis. MRI was completed this morning without any other finding except sinusitis. Hospital course otherwise quite unremarkable with benign labs and normal exams. No indication for further intervention - will give discharge flonase script and advise f/up with PCP to consider any further diagnosis/treatment. Return to ED for any return of these symptoms. Status at Discharge Cognitive/behavioral status at discharge: at baseline, oriented Functional status at discharge: independent ambulation Overall status at discharge: patient is back to baseline Exam Vital Signs (past 8 hours): - 08/30/23 04:46 08/30/23 07:00 08/30/23 08:00 Temperature 98.4 F 97.3 F L Pulse Rate 66 67 Respiratory Rate 16 16 Blood Pressure 129/72 148/80 H Pulse Oximetry 96 98 Oxygen Delivery Method Room Air Oxygen Flow Rate 0 0 Oxygen Delivery Method Room Air Oxygen Flow Rate 0 Narrative Exam Narrative: sitting at his ease chatting with family Resp Auscultation: clear to auscultation bilaterally Cardio Rate: regular rate Rhythm: regular rhythm Heart Sounds: S1 normal and S2 normal GI Palpation: soft Auscultation: normal bowel sounds Neuro General: patient alert, patient awake, patient oriented x3, gait normal, tone normal, moves all extremities, normal light touch, pain and propioception, no focal motor deficits and CN's II-XI intact bilaterally Objective Labs 08/29/23 18:12 08/29/23 18:12 Labs: Laboratory Results - last 24 hr 08/29/23 08/29/23 18:12 19:28 WBC 7.1 RBC 5.03 Hgb 14.9 Hct 44.3 MCV 88.1 MCH 29.6 MCHC 33.6 RDW 13.4 Plt Count 331 Neut % (Auto) 65.1 Lymph % (Auto) 23.0 L [place] % (Auto) 9.3 Eos % (Auto) 1.4 L Baso % (Auto) 1.2 Neut # (Auto) 4600 Lymph # (Auto) 1600 [place] # (Auto) 700 Eos # (Auto) 100 Baso # (Auto) 100 PT 10.8 INR 0.9 APTT 38 H Sodium 138 Potassium 3.9 Chloride 106 Carbon Dioxide 30 BUN 20 Creatinine 1.35 H Estimated GFR > 60 BUN/Creatinine Ratio 14.8 Glucose 109 H Calcium 9.2 Magnesium 1.8 Total Bilirubin 0.6 AST 38 ALT 54 H Alkaline Phosphatase 69 Total Creatine Kinase 371 H Troponin I 0.013 Total Protein 7.4 Albumin 4.2 Globulin 3.2 Albumin/Globulin Ratio 1.3 U Opiates 300ng/mL cut Negative Ur Oxycodone Screen Negative Urine Methadone Screen Negative Ur Barbiturates Screen Negative U Tricyclic Antidepress Negative Ur Phencyclidine Scrn Negative Ur Amphetamines Screen Positive H U Methamphetamines Scrn Negative Ur MDMA Scrn (Ecstasy) Negative U Benzodiazepines Scrn Negative Urine Cocaine Screen Negative U Marijuana (THC) Screen Negative Urine pH TNP Urine Specific [place] TNP Ur Creatinine TNP [facility] Medical History 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 External hemorrhoid ADHD (attention deficit hyperactivity disorder) Hypertension Excessive daytime sleepiness Obstructive sleep apnea of adult Snoring Primary insomnia Surgical History History of bilateral inguinal herniorrhaphies History of repair of ACL History of laparoscopic cholecystectomy Family History Brother Insomnia Social History marital status: details: to 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, [employer]) number of children: 3 household members: spouse lives independently: Yes housing: house occupational status: employed Smoking Status: Former smoker alcohol intake: former substance use type: does not use Discharge Assessment & Plan Assessment and Plan Assessment: #transient aphasia, possible stroke Benign imaging and exam, no symptoms since presentation, seems resolutely back to baseline, ok to dc home for now stay well hydrated Head CT/CTA/MRI all unrevealing except for repeated note of: #acute on chronic sinusitis noted on imaging and seemed related to onset fo symptoms - let's try some flonase - will prescribe through outpatient EMR #hypertension stable continue home meds - if he wants to hold amlodipine a couple days that's ok dispo: d/c home to f/up as outpatient with PCP PCP: Alyson diet: general code: full MDM: Daughter Omari Discharge Plan Discharge Plan Patient Disposition: Home Discharge orders & Medications Prescriptions: Continued testosterone [AndroGel] 1.25 GM gel in packet 1.25 gm TD Qty: 0 dextroamphetamine-amphetamine [Adderall] 15 MG tablet 15 mg PO BID Qty: 0 Hold Instructions: not taking for the time being Rx Instructions: reports he currently takes this medication, per note, hold for the time being. (DME) Respironics Dreamstation CPAP Qty: 1 Dose Instruction: As directed Patient Comments: Pressure: 10-14 cmH2O DME: [facility] Rx Instructions: As directed carvedilol 12.5 mg tablet 6.25 mg PO DAILY Rx Instructions: must administer with a meal/food aspirin [Adult Aspirin Regimen] 81 mg tablet,delayed release (DR/EC) 81 mg PO DAILY losartan 25 mg tablet 25 mg PO BID amlodipine 10 mg tablet 10 mg PO DAILY atorvastatin 40 mg tablet 40 mg PO DAILY eszopiclone 2 mg tablet 2 mg PO BEDTIME PRN (Reason: Primary insomnia) Qty: 30 0RF Rx Instructions: Take 1 tablet by mouth at bedtime; use sparingly. Follow up/Referrals: Popeye Shields MD [Primary Care Provider] - Visit Report/Discharge Packet Stand Alone Forms: Patient Portal/API, Stroke Signs & Symptoms Discharge Data Primary Care Provider: Popeye Shields Attending Provider: Popeye Shields Admit Date/Time: 08/29/23 21:54 Quality VTE Deep Vein Thrombosis/Pulmonary Embolism Present on Admission: No
--- NOTE | 2023-08-30 12:07 | CM.DANOTE ---
Discharge Planning/Care Management CM Discharge Assessment Start: 08/30/23 11:59 Freq: Status: Active Protocol: Document 08/30/23 11:59 REGINA (Rec: 08/30/23 12:07 REGINA [id number]) Discharge Planning Assessment Assigned Psychiatry Adult Physician ANAMARIA Hurst DPOA/Assigned Designee Name Omari Gonzalez, daughter ( Pérez) Contact Information [phone] Advance Directives? Yes Advance Directives on File No History Provided By Patient,Family Member,Medical Record Prior Living Arrangements House Household Members spouse Type of transporation used prior to Drives own vehicle admit Independent with ADL's Yes Is patient alert and oriented? Yes Barriers to Discharge No Comment Patient discharged today after imaging neg for stroke. Patient with a known sinusitis which Dr Coleman suspected as the etiology for temporary change in speech. Patient back to functional baseline and discharge home with family to assist as needed. Discharge Plan Home Transportation Arrangement Family Referrals Initiated None needed
== END 2023-08-30 11:34 | disposition home or self-care (01) ==
LOC: ED 21:53 → AC 21:55
PROVIDERS: Admitting Provider Family Medicine; Emergency Provider Emergency Medicine; PCP Family Medicine; Referring Provider Emergency Medicine; Visit Provider Family Medicine
DX: R47.01 Aphasia (principal); I10 Essential (primary) hypertension; J01.00 Acute maxillary sinusitis, unspecified; J32.0 Chronic maxillary sinusitis
CPT/HCPCS: 36415; 70450; 70496; 70498; 70551; 71045; 80053; 80305; 81003; 82550; 83735; 84484; 85025; 85610; 85730; 94660; 99284; G0378

== ENCOUNTER → 2024-11-05 16:13 | Outpatient (CLI) | payer OTHER, SELFPAY ==
[2023-08-29 23:11] VITALS: BMI 32.3
--- NOTE | 2024-11-05 | DI.RAD.S_ITS ---
PROCEDURE: XR SHOULDER LT MIN 2V INDICATIONS: PAIN TECHNIQUE: 3 views of the shoulder were acquired. COMPARISON: None. FINDINGS: Bones: No fractures or dislocations. Mild glenohumeral joint space narrowing and marginal osteophytosis. Moderate hypertrophic acromioclavicular arthropathy and joint space narrowing. No suspicious bony lesions. Visualized ribs appear intact. Soft tissues: No suspicious soft tissue calcifications. IMPRESSION: Degenerative changes of the glenohumeral and acromioclavicular joints without evidence of acute bony abnormality. Dictated by: Kun Kevin M.D. on 11/05/2024 at 23:57 Approved by: Kun Kevin M.D. on 11/05/2024 at 23:58
== END ==
PROVIDERS: PCP Family Medicine; Referring Provider Family Medicine; Visit Provider Family Medicine
DX: M25.512 Pain in left shoulder (principal)
CPT/HCPCS: 73030